=== PATIENT | female | born 1970 ===

== ENCOUNTER 2018-02-13 05:59 | Day surgery (SDC) | payer MEDICARE, OTHER ==
[2018-02-09 12:50] VITALS: BMI 38.9
[2018-02-13] MEDS ORDERED: Propofol 10 mg/ml Inj (20 ML) ONE ×3 (07:44→10:52)
[2018-02-13] MEDS ORDERED: ceFAZolin IV 1 gm in Dextrose 2 GM/100 ML BAG IVPB ONE (08:07)
[2018-02-13] MEDS ORDERED: Lidocaine Hydrochloride 0 ML INJ ONE (08:07)
[2018-02-13] MEDS ORDERED: Bupivacaine 0.25% 20 ML INJ IJ ONE ×2 (08:07→09:52)
[2018-02-13] MEDS ORDERED: Midazolam 2 MG/2 ML VIAL ONE (08:11)
[2018-02-13] MEDS ORDERED: Rocuronium 10 mg/ml (5 ml) ONE (08:12)
[2018-02-13] MEDS ORDERED: Bupivacaine Liposomal Inj 20 ml INFIL ONE (08:34)
[2018-02-13] MEDS ORDERED: Neostigmine Methylsulfate 3mg/3ml Syringe IV ONE (10:15)
[2018-02-13] MEDS ORDERED: Oxycodone/Acetaminophen 5/325 mg Tab PO PRN ×2 (11:10)
--- NOTE | 2018-02-13 11:16 | PCM.SURG1 ---
Surgeon's Initial Post Op Note - Surgeon's Notes Surgeon: Dr. Montemayor Clinical Staff Pharmacist: Dr. Zulma Crespo, Dr. Feliz Type of Anesthesia: General LMA Pre-Operative Diagnosis: right ankle fracture with syndesmotic rupture, lateral ankle instability Operative Findings: Synthes plate, screws, 4-0, 3-0, 2-0 vicryl, 4-0 Nylon, Tightrope, Suture anchors Post-Operative Diagnosis: same Operation Performed: Right ankle ORIF, syndesmotic repair, ATFL repair Specimen/Specimens Removed: none Estimated Blood Loss: EBL {In ML}: 5 Blood Products Given: N/A Drains Used: No Drains Post-Op Condition: Good Date of Surgery/Procedure: 02/13/18 Time of Surgery/Procedure: 09:00
[2018-02-13 11:31] VITALS: O2SAT 100
--- NOTE | 2018-02-13 11:32 | RAD ---
Date of service: 02/13/2018 PROCEDURE: Intraoperative Fluoroscopy. HISTORY: RT. FIB FX. FINDINGS: Fluoroscopic assistance was provided for open reduction internal fixation. Total fluoroscopic time 57.9. Please refer to the operative report from JONH Padilla. Total exam DLP: 1.27 (mGy)
[2018-02-13] MEDS: HYDROmorphone 0.5 mg/0.5 ml ISec IVP PRN ×2 (11:40→11:53)
[2018-02-13 12:20] VITALS: TEMP 98
--- NOTE | 2018-02-13 12:20 | RAD ---
Date of service: 02/13/2018 PROCEDURE: Right Ankle Radiographs. HISTORY: s/p right ankle orif COMPARISON: None FINDINGS: BONES: Normal. No fractureStatus post ORIF distal fibula. Fracture not definitely identified. No prior for comparison. Plate and screw fixation device seen along the distal fibula. The hardware appears intact. There is a distal tibial fibular anchor with tibial tunnel identified. . JOINTS: Normal. No osteoarthritis. Ankle mortise maintained. Talar dome intact SOFT TISSUES: Normal. OTHER FINDINGS: None. IMPRESSION: ORIF distal fibula with distal tibial-fibular anchor.
[2018-02-13 12:44] VITALS: BP 121/70; PULSE 85; RESP 18
== END 2018-02-13 12:59 | disposition home or self-care (01) ==
LOC: C.SDS 05:59
PROVIDERS: ATTEND Podiatrist Foot & Ankle Surgery
DX: S82.61XA Displaced fracture of lateral malleolus of right fibula, initial encounter for closed fracture (principal); S93.491A Sprain of other ligament of right ankle, initial encounter; M25.371 Other instability, right ankle; X58.XXXA Exposure to other specified factors, initial encounter
CPT/HCPCS: 27695; 27696; 27792; 73600; C1713; J0690; J1170; J2001; J2250; J2405; J2704; J2710; J2765; J3010

== ENCOUNTER 2018-07-10 09:27 | Outpatient (CLI) | payer MEDICARE, OTHER | END 2018-07-10 09:28 | disposition home or self-care (01) | LOC: C.PAT 09:27 ==

== ENCOUNTER 2018-07-18 06:27 | Day surgery (SDC) | payer MEDICARE, OTHER ==
[2018-07-10 09:40] VITALS: BMI 38.6
[2018-07-18] MEDS ORDERED: Propofol 10 mg/ml Inj (20 ML) ONE ×2 (09:25→09:58)
[2018-07-18] MEDS ORDERED: Midazolam 2 MG/2 ML VIAL ONE (09:25)
[2018-07-18] MEDS ORDERED: Bupivacaine 0.25% 20 ML INJ IJ ONE (09:42)
[2018-07-18] MEDS ORDERED: ceFAZolin 1 gm in NS 2 GM/200 ML BAG IVPB ONE (09:43)
[2018-07-18] MEDS ORDERED: Bupivacaine HCl 0.5% PF (10 ml) Inj ONE ×2 (10:40)
[2018-07-18] MEDS ORDERED: Neostigmine 1:1000 (1 mg/ml) Inj ONE (10:42)
--- NOTE | 2018-07-18 11:11 | PCM.SURG1 ---
Surgeon's Initial Post Op Note - Surgeon's Notes Surgeon: Dr. Rogel Phthalic Acid Purifier: Dr. Kait Brown PGY-3, Dr. Misty Malik PGY-2, Dr. Sue Mitchell PGY-2 Type of Anesthesia: General Endo, Local Anesthesia Administered By: Dr. Hooker Pre-Operative Diagnosis: left lateral ankle instability Operative Findings: see op note Post-Operative Diagnosis: same Operation Performed: lateral ankle instability left ankle Specimen/Specimens Removed: none Estimated Blood Loss: EBL {In ML}: 3 Blood Products Given: N/A Drains Used: No Drains Post-Op Condition: Good Date of Surgery/Procedure: 07/18/18 Time of Surgery/Procedure: 10:00
[2018-07-18] MEDS: HYDROmorphone 0.5 mg/0.5 ml ISec IVP PRN ×2 (11:30→12:07)
[2018-07-18 12:56] VITALS: BP 146/90; PULSE 59; RESP 18; TEMP 97; O2SAT 100
--- NOTE | 2018-07-20 21:58 | OP ---
PROCEDURE DATE: 07/18/2018 PREOPERATIVE DIAGNOSIS: Instability of lateral collateral ligament of the left ankle. POSTOPERATIVE DIAGNOSIS: Instability of lateral collateral ligament of the left ankle. PROCEDURE: Lateral ankle stabilization of left ankle. SURGEON: Jerrell Rogel DPM [employer]: Nayana Brown DPM, PGY-3; Kenneth Malik DPM, PGY-2; Nela Mitchell DPM, PGY-2. TYPE OF ANESTHESIA: General with local. IMPLEMENTATION PROJECT MANAGER: Dr. Hooker. INDICATIONS: The patient is a 48-year-old female with the above mentioned diagnosis. The patient has exhausted conservative treatment measures at this time and now requests surgical intervention. The patient signed the consent after careful explanation of all risks, benefits, complications and alternatives for surgical procedure. No guarantees were given nor implied. Ancef IV was given to the patient prior to the procedure. N.p.o. status was confirmed prior to bringing the patient into the operating room. PREPARATION: The patient was brought into the operating room and placed on the operating room table in the supine position. A well-padded pneumatic thigh tourniquet was placed to the patient's left thigh region with plenty of Webril cast padding. After induction of anesthesia, the left foot and ankle were then prepped in the usual sterile manner. Esmarch bandage was utilized to exsanguinate the patient's left foot and ankle. The tourniquet was then inflated to 360 mmHg and the procedure was begun. DESCRIPTION OF PROCEDURE: Lateral ankle stabilization of the left ankle. Attention was directed to the lateral aspect of the patient's left ankle where the fibula and lateral talus landmarks were identified. Using a #15 blade, a curvilinear incision was made from the anterior-superior to proximal-inferior aspect of the lateral ankle made over the distal fibula with care being taken to make the incision 1 cm anterior to the distal tip of the fibula. Using a combination of sharp and blunt tissue dissection, the incision was carried down through the subcutaneous tissue, taking care to avoid all vital neurovascular structures. All bleeders were cauterized as necessary. The superficial peroneal retinaculum was identified and sharply dissected free from the underlying capsular ligamentous tissue. The capsule in the ATFL ligament was then reflected from the fibula attachment. Care was taken to leave a cuff of capsule and ligament, making the incision several millimeters proximal to the distal fibular edge. The distal fibular edge was then roughened using a bone rongeur in order to improve soft tissue adherent. Next, a drill was used to pre-drill two holes in the distal anterior aspect of the fibula and next two Arthrex 2.6 FiberTak were then inserted into these two drill holes. Of note, the more anterior proximal FiberTak did fail within the bone due to the soft nature of this bone encountered, so it was replaced using an Arthrex 2.4 mini-SutureTak. Next, the fiber wire was then released from each SutureTak and was fed from each SutureTak and then passed to the ATFL, CFL and capsule multiple times with tail left untied at this time. Next, a 1.1 K-wire was used to identify the lateral aspect of the sinus tarsi, and a #15 blade was used to make a stab incision just proximal to the protrusion at the level of the talar neck. This was identified using blunt dissection. Next, a 3.4-mm drill hole was created on the non-articulating surface of the talus, directed approximately 45 degrees to prevent violation of the ankle joint. Then a 4.75 mm SwiveLock tap was utilized. The 4.75 SwiveLock, which was loaded with a FiberTape, was placed into the drill hole until fully seated into the bone. Next, a 2.7 mm drill bit internal brace kit was utilized to create a drill hole approximately 1.5 cm proximal to the distal aspect of the tip of the fibula. The drill hole was then packed with a 3.5 mm tap for at least two turns to securely fit into the fibula. Now, the FiberTape from the internal brace as well the suture used upon the Brostrom repair were fed through the islet of a 3.5 mm SwiveLock and the anchor was inserted into the fibular tunnel until it was fully seated into the fibula. To avoid over-tensioning, a hemostat was placed in between the FiberTape and the bone of the talus. Excess FiberTape was cut and removed from the operative field. The ankle was then placed through stress eversion and inversion with excellent stability appreciated. The surgical site was washed with copious amounts of normal sterile saline solution. The capsular tissue and retinaculum were repaired using 2-0 Vicryl. Superficial subcutaneous tissue was reapproximated using 3-0 Vicryl and the subcuticular tissue was reapproximated using 4-0 Vicryl. The skin edges were reapproximated using 4-0 Prolene suture in simple suture technique. Then, 20 mL of 0.5% Marcaine plain was then introduced to the surgical site postoperatively. The incision was then dressed with Xeroform, 4x4 gauze, Roland and Kerlix, and the patient was placed in a below-knee well-padded posterior splint with the foot in dorsiflexed neural position. POSTOPERATIVE CONDITION: The patient tolerated the procedure and the anesthesia well with no apparent complications or complaints and was escorted to the recovery room with vital signs stable and neurovascular structures intact to the patient's left foot and ankle. The patient will be instructed on weightbearing to the left foot with crutches. The patient will follow with Dr. Rogel in the office within one week. Nayana Brown DPM Jerrell Rogel DPM JOJO
== END 2018-07-18 14:29 | disposition home or self-care (01) ==
LOC: C.SDS 06:27
PROVIDERS: ATTEND Podiatrist Foot & Ankle Surgery
DX: S93.492D Sprain of other ligament of left ankle, subsequent encounter (principal); M25.372 Other instability, left ankle
CPT/HCPCS: 27871; 97116; 97161; C1713; G8978; G8979; G8980; J0690; J1100; J1170; J1885; J2250; J2405; J2704; J2710; J3010